=== PATIENT | female | born 1990 | race Caucasian/White ===

== ENCOUNTER 2016-08-13 01:17 | Emergency (ER) | payer OTHER ==
--- NOTE | ~2016-08-13 | CR63 ---
[facility] A Service [facility] RADIOLOGY TEXT RESULTS PATIENT: WARD LUCIANO LOCATION: SED : [birth year] UNIT #: [id number] AGE: [address]: Tony Reed MD SEX: F ORDER DR: [id number] [place] [id number] E MR#: [id number] Acc #: [id number] NAME: WARD LUCIANO : 1990 SEX: F STUDY DATE/TIME: 08/13/2016 2:26 UNIT: SED ROOM: STUDY DESCRIPTION: CR Chest 2 View Attending Physician: Tony Reed M.D. Ordering Physician: Tony Reed M.D. Primary Care Physician: [facility] MEDICAL IMAGING REPORT This report is preliminary unless electronic signature is present. EXAM PA and lateral chest 08/13/2016 INDICATION Cough, congestion for a week. COMPARISON 06/16/2013. FINDINGS PA and lateral views of the chest were obtained. There is a dense infiltrate best seen on the lateral view measuring about 5 cm in diameter. I believe it is in the right middle lobe. The bones are normal. The heart size normal. IMPRESSION There is about a 5 cm area of density seen best on the lateral view. I believe it represents some right middle lobe infiltrate. Clinical correlation is recommended. Dictated by... Mendez Rogers M.D. THIS IS AN ELECTRONICALLY VERIFIED REPORT Mendez Rogers M.D. at 08/13/2016 1:30 PM LEO/roseanne TD: 08/13/2016 09:47 JOB #: [id number] [facility] A Service [facility] RADIOLOGY TEXT RESULTS PATIENT: AWRD LUCIANO LOCATION: SED : [birth year] UNIT #: [id number] AGE: [address]: Tony Reed MD SEX: F ORDER DR: MEDICAL IMAGING REPORT Page 1 of 1
[~2016-08-13 01:17] MED LIST: ALBUTEROL17 GM INH; BENTYL10 MG DOB; DOXYCYCLINE HY100 M3 PO; FLAGYL PO; KEFLEX; KETOPROFEN PO; LORTAB 7.5-5001 TAB PO; MUCINEX100 MG/BOX PO; NO MEDICATIONS; PRENATAL1 TA1 PO; PRILOSEC20 M1 PO; PROMETHAZINE W118 M1 PO; ROBITUSSIN A-C S5 ML PO; VIBRAMYCIN100 M1 PO; VOLTAREN75 MG PO; ZITHROMAX PO; ZOFRAN PO
[2016-08-13] MEDS ORDERED: NO MEDICATIONS (01:42)
== END 2016-08-13 03:05 | disposition home or self-care (01) ==
LOC: SED 01:17
DX: J45.909 Unspecified asthma, uncomplicated (principal); J06.9 Acute upper respiratory infection, unspecified; F17.200 Nicotine dependence, unspecified, uncomplicated; Z88.0 Allergy status to penicillin
CPT/HCPCS: 71020; 99284

== ENCOUNTER 2016-09-13 00:16 | Emergency (ER) | payer OTHER ==
--- NOTE | ~2016-09-13 | CR63 ---
[facility]. [facility] A Service of [facility] & [facility] RADIOLOGY TEXT RESULTS PATIENT: WARD LUCIANO LOCATION: SED : [birth year] UNIT #: [id number] AGE: [address]: Natasha Reagan MD SEX: F ORDER DR: [id number] [address] [address] [id number] E MR#: [id number] Acc #: [id number] NAME: WARD LUCIANO : 1990 SEX: F STUDY DATE/TIME: 09/13/2016 1:29 UNIT: SED ROOM: STUDY DESCRIPTION: CR Chest 2 View Attending Physician: Natasha Reagan M.D. Ordering Physician: Natasha Reagan M.D. [facility] REPORT This report is preliminary unless electronic signature is present. EXAM PA and lateral chest INDICATIONS Cough for 4 days congestion for 2 days and shortness of air for 1 day. FINDINGS A PA and lateral view of the chest were obtained. Heart size and vascularity are normal. There is some minimal lingular infiltrate measuring only about 1.5 cm in diameter. The rest of the lungs are clear. The bones are normal. IMPRESSION I believe there is some minimal lingular infiltrate seen on that PA and lateral view. Otherwise study is normal Dictated by... Mendez Rogers M.D. THIS IS AN ELECTRONICALLY VERIFIED REPORT Mendez Rogers M.D. at 09/13/2016 1:42 PM LEO/jairon TD: 09/13/2016 13:34 JOB #: [id number] MEDICAL IMAGING REPORT Page 1 of 1
[2016-09-13] MEDS ORDERED: ALBUTEROL17 GM (00:24)
== END 2016-09-13 03:04 | disposition home or self-care (01) ==
LOC: SED 00:16
DX: J18.9 Pneumonia, unspecified organism (principal); J45.909 Unspecified asthma, uncomplicated; F17.210 Nicotine dependence, cigarettes, uncomplicated; Z88.0 Allergy status to penicillin
CPT/HCPCS: 71020; 96372; 99283; J0696